=== PATIENT | female | born 1960 | race Caucasian/White ===

== ENCOUNTER → 2017-04-23 | Outpatient (CLI) | payer OTHER, MEDICAID | LOC: FIMAGING 10:28 | PROVIDERS: ATTEND Physician Assistant | DX: Z12.31 Encounter for screening mammogram for malignant neoplasm of breast (principal) | CPT/HCPCS: G0202 ==

== ENCOUNTER → 2017-08-17 | Outpatient (CLI) | payer OTHER, MEDICAID | LOC: FIMAGING 13:26 | PROVIDERS: ATTEND Physician Assistant | DX: Z13.820 Encounter for screening for osteoporosis (principal); Z78.0 Asymptomatic menopausal state ==

== ENCOUNTER → 2017-09-24 | Outpatient (CLI) | payer OTHER, MEDICAID ==
[~2017-09-24] MED LIST: GADOBUTROL 10 ML VIAL IVP ONE
== END ==
LOC: FIMAGING 15:16
PROVIDERS: ATTEND Internal Medicine Hematology & Oncology
DX: C53.9 Malignant neoplasm of cervix uteri, unspecified (principal)
CPT/HCPCS: 72197; A9585

== ENCOUNTER 2017-10-06 09:05 | Day surgery (SDC) | payer OTHER, MEDICAID ==
[2017-10-06] MEDS ORDERED: ceFAZolin 2 GM/SWFI 2 GM/20 ML SYR IVP ONE (09:37)
[2017-10-06] MEDS ORDERED: LR 1,000 ML IV ONE (09:45)
[2017-10-06 09:56] VITALS: TEMP 97.7
[2017-10-06] MEDS ORDERED: BUPIVACAINE 0.5% 30 ML SDV ONE (10:53)
[2017-10-06] MEDS ORDERED: LIDOCAINE 1% 300 MG/30 ML SDV ONE (10:53)
[2017-10-06] MEDS ORDERED: SODIUM BICARBONATE 10 MEQ/10 ML SYR IVP ONE (10:53)
[2017-10-06] MEDS ORDERED: BACITRACIN ZINC 14.2 GM OINTTUBE TP ONE (10:53)
--- NOTE | 2017-10-06 11:00 | PDANEPAE ---
ANE History of Present Illness 57 year old female presents for vascular access placement. ANE Past Medical History - Cardiovascular History Hx Hypertension: Yes Hx Arrhythmias: No Hx Chest Pain: No Hx Coronary Artery / Peripheral Vascular Disease: No Hx CHF / Valvular Disease: No Hx Palpitations: No Cardiovascular History Comment: HYPERLIPIDEMIA - Pulmonary History Hx COPD: No Hx Asthma/Reactive Airway Disease: No Hx Recent Upper Respiratory Infection: No Hx Oxygen in Use at Home: No Hx Sleep Apnea: No Sleep Apnea Screening Result - Last Documented: Negative - Neurologic History Hx Cerebrovascular Accident: No Hx Seizures: No Hx Dementia: No - Endocrine History Hx Diabetes: Yes Hypothyroid: No Hyperthyroid: No Obesity: yes, moderate, severe Endocrine History Comment: NIDDM - Renal History Hx Renal Disorders: No - Liver History Hx Hepatic Disorders: No - Neurological & Psychiatric Hx Hx Neurological and Psychiatric Disorders: Yes Neurological / Psychiatric History Comment: SCHIZOPHRENIA - Cancer History Hx Cancer: Yes Cancer History Comment: CERVICAL - Congenital Disorder History Hx Congenital Disorders: No - GI History Hx Gastrointestinal Disorders: Yes Gastrointestinal History Comment: HEMMORRHOIDS - Other Health History Other Health History: NEG - Surgical History Prior Surgeries: HYSTERECTOMY. LASER ABLATION UTERUS ANE Review of Systems Review of systems is: negative Review of Systems: - Exercise capacity Exercise capacity: >=4 METS METS (RN): 4 METS ANE Patient History - Allergies Allergies/Adverse Reactions: ALKALINE SOAP Allergy (Uncoded 08/20/16 10:57) SNEEZING - Home Medications Home medications: home medication list seen and reviewed Home Medications: Actos HS 08/20/16 [Last Taken Unknown] Atorvastatin Calcium HS 08/20/16 [Last Taken Unknown] Fenofibrate HS 08/20/16 [Last Taken Unknown] Gabapentin BID 08/20/16 [Last Taken Unknown] HCTZ (*) HS 08/20/16 [Last Taken Unknown] Invega Sustenna (*) ONCE 08/20/16 [Last Taken Unknown] Levemir BID 08/20/16 [Last Taken Unknown] Lisinopril DAILY06 08/20/16 [Last Taken Unknown] Metformin HCl TID 08/20/16 [Last Taken Unknown] - NPO status NPO Status: no food or drink >8 hours NPO Since - Liquids (Date): 10/06/17 NPO Since - Liquids (Time): 08:30 NPO Since - Solids (Date): 10/05/17 NPO Since - Solids (Time): 21:00 - Anes Hx Anes Hx: no prior problems - Smoking Hx Smoking Status: Former smoker Marijuana use: No - Alcohol Use Alcohol Use: None - Family Anes Hx Family Anes Hx: neg - N/A Family Hx Anesthesia Complications: NEG ANE Labs/Vital Signs - Vital Signs Vital Signs: reviewed preoperatively; see RN documention for details Blood Pressure: 138/66 Heart Rate: 71 Respiratory Rate: 20 O2 Sat (%): 90 Height: 160.02 cm Weight: 115.666 kg ANE Physical Exam - Airway Neck exam: FROM, increased neck circumference, short neck Mallampati Score: Class 3 Mouth exam: small mouth opening - Pulmonary Pulmonary: no respiratory distress - Cardiovascular Cardiovascular: regular rate and rhythym - ASA Status ASA Status: III ANE Anesthesia Plan Anesthesia Plan: GA w LMA, MAC (Mac is plan, GA with LMA is back-up plan) Total IV Anesthesia: No
[2017-10-06] MEDS ORDERED: fentaNYL 100 MCG/2 ML INJ ONE (11:40)
[2017-10-06] MEDS ORDERED: PROPOFOL/EMULSION 500 MG/50 ML BOTTLE IV ONE (11:40)
--- NOTE | 2017-10-06 11:50 | PDHPUP ---
History & Physical Update H&P update statement: This history and physical update is based on an assessment of the patient which was completed after admission or registration (within 24 hours), but prior to the surgery/procedure. H&P update: H&P reviewed & patient examined, no change in patient's condition since H&P completed
[2017-10-06] MEDS ORDERED: ONDANSETRON 4 MG/2 ML VIAL IVP PRN (12:01)
[2017-10-06] MEDS ORDERED: fentaNYL 100 MCG/2 ML INJ IVP PRN (12:01)
[2017-10-06] MEDS ORDERED: NALOXONE HCL 0.4 MG/ML INJ IVP PRN (12:01)
[2017-10-06] MEDS ORDERED: LR 500 ML IV PRN (12:01)
[2017-10-06] MEDS ORDERED: DEXAMETHASONE 4 MG/ML VIAL ONE (12:06)
--- NOTE | 2017-10-06 13:23 | POSTOPPROG ---
Post Op Note Date of Operation: 10/06/17 Surgeon: Anton Cannon Cocoa Bean Roaster: none Anesthesiologist: Ramu Hathaway Anesthesia: Other (Specify) (MAC) Pre-op Diagnosis: squamous cell CA cervix Post-op Diagnosis: same Procedure: power port placement with flouro Findings: good position and flow Inf/Abcess present in the surg proc area at time of surgery?: No EBL: Minimal Complications: none
[2017-10-06 13:52] VITALS: BP 160/81; O2SAT 95
[2017-10-06 14:06] VITALS: PULSE 65; RESP 14
--- NOTE | 2017-10-06 19:56 | POSTANESTH ---
Post Anesthetic Evaluation Cardiovascular Status: Normal, Stable, Similar to Pre-Op Cond Respiratory Status: Normal, Stable, Similar to Pre-op Cond. Level of Consciousness/Mental Status: Can Participate in Eval, Alert and Oriented Pain Control: Adequate, Prn Tx Ordered Nausea/Vomiting Control: Adequate, Prn Tx Ordered Complications Possibly Related to Anesthesia: None Noted
--- NOTE | 2017-10-10 14:31 | GOP ---
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 ANESTHESIOLOGIST: Valdez Valenzuela MD PREOPERATIVE DIAGNOSIS: Cervical cancer. POSTOPERATIVE DIAGNOSIS: Cervical cancer. PROCEDURE PERFORMED: Left subclavian port placement with fluoroscopic guidance. FINDINGS: The patient was found to have a good position and good flow. DESCRIPTION OF PROCEDURE: The patient was taken to operating room where she received satisfactory IV sedation and monitored anesthesia care by Dr. Valenzuela. She was prepped and draped in the usual sterile fashion. Using 0.5% Marcaine for local infiltration, a single stick was made in the left subclavian vein. A guidewire was introduced. A dilator was passed through the guidewire. The position was confirmed with fluoroscopy. A subcu pocket was made in the 2nd intercostal space. Port tubing was passed from that pocket to the subclavian insertion site. It was trimmed to the appropriate length using fluoroscopic guidance. Good backflow was obtained. The catheter was flushed with heparin saline. The port was secured to the fascia with 3-0 Vicryl. The pocket was closed with 3-0 Vicryl in the subcu and a 4-0 Prolene subcuticular stitch for the skin. The entrance site was closed with a Prolene mattress suture as well. All wounds were infiltrated with 0.5% Marcaine. She tolerated the procedure well and was taken to the recovery room in good condition. /[id number]/MODL MTDD
== END 2017-10-06 14:06 | disposition home or self-care (01) ==
LOC: FSGY 09:05
PROVIDERS: ATTEND Surgery
PROC: 02HV33Z Insertion of Infusion Device into Superior Vena Cava, Percutaneous Approach (ICD-10-PCS; principal; 2017-10-06 10:45)
PROC: 0JH60XZ Insertion of Tunneled Vascular Access Device into Chest Subcutaneous Tissue and Fascia, Open Approach (ICD-10-PCS; principal; 2017-10-06 10:45)
DX: C53.9 Malignant neoplasm of cervix uteri, unspecified (principal); E11.9 Type 2 diabetes mellitus without complications; E78.5 Hyperlipidemia, unspecified; G62.9 Polyneuropathy, unspecified; N28.9 Disorder of kidney and ureter, unspecified; E66.9 Obesity, unspecified; Z68.41 Body mass index [BMI] 40.0-44.9, adult
CPT/HCPCS: C1788; J0690; J1100; J1642; J2704; J3010

== ENCOUNTER → 2017-11-03 | Outpatient (CLI) | payer OTHER, MEDICAID ==
[~2017-11-03] MED LIST changes: +ACETAMINOPHEN 325 MG TAB PO ONE; +FUROSEMIDE 20 MG/2 ML VIAL IV ONE; -GADOBUTROL 10 ML VIAL IVP ONE; +diphenhydrAMINE 25 MG CAP PO ONE
[2017-11-03 19:10] VITALS: RESP 20; O2SAT 95
[2017-11-03 20:09] VITALS: BP 145/61; PULSE 82; TEMP 98.4
== END ==
LOC: FOBOP 15:13
PROVIDERS: ATTEND Internal Medicine Hematology & Oncology
DX: C53.9 Malignant neoplasm of cervix uteri, unspecified (principal); E61.2 Magnesium deficiency; D64.9 Anemia, unspecified
CPT/HCPCS: 36430; J1642; J1940; P9016; P9035

== ENCOUNTER 2017-12-18 10:59 | Outpatient (CLI) | payer OTHER, MEDICAID ==
[2017-12-18] MEDS ORDERED: ACETAMINOPHEN 325 MG TAB PO ONE (12:00)
[2017-12-18 15:20] VITALS: TEMP 99.6
[2017-12-18 15:22] VITALS: BP 183/74
[2017-12-18 15:46] VITALS: PULSE 73; RESP 24; O2SAT 97
== END 2017-12-18 15:40 | disposition home or self-care (01) ==
LOC: FOBOP 10:59
PROVIDERS: ATTEND Internal Medicine Hematology & Oncology
PROC: 30233N1 Transfusion of Nonautologous Red Blood Cells into Peripheral Vein, Percutaneous Approach (ICD-10-PCS; principal; 2017-12-18)
DX: C53.9 Malignant neoplasm of cervix uteri, unspecified (principal)
CPT/HCPCS: 36430; J1642; P9016

== ENCOUNTER 2017-12-24 12:39 | Inpatient (IN) | payer OTHER, MEDICAID ==
--- NOTE | 2017-12-24 14:05 | EDPHY ---
H & P Time Seen by Provider: 12/24/17 13:31 HPI/ROS: CHIEF COMPLAINT: Fall, weakness, shortness of breath. HISTORY OF PRESENT ILLNESS: This patient is a 57 year old female with history of cervical cancer presenting following a fall due to weakness. She stood up, felt dizzy and then fell. Did not hurt herself. She began feeling weak two days ago. Associated with shortness of breath on exertion and feeling dizzy while walking with her walker. She completed chemotherapy treatment 11/29/17 and is scheduled for followup CTs and evaluation at [facility]. She had a blood transfusion last 12/18/17 due to severe anemia. No vomiting, diarrhea, melena, or hematochezia. No chest pain, headache, fever, or other associated symptoms. REVIEW OF SYSTEMS: A 10 point review of systems was performed and is negative with the exception of the elements mentioned in the history of present illness. Past Medical/Surgical History: History of cervical cancer Diabetes mellitus Schizophrenia Neuropathies Social History: Former smoker. Single. Lives in [place]. Smoking Status: Former smoker Physical Exam: General Appearance: Pale, alert, obese. BP 88/60 at triage. Eyes: Pupils equal and round, conjunctival pallor ENT, Mouth: Mucous membranes moist Neck: Normal inspection Respiratory: Lungs are clear to auscultation Cardiovascular: Regular rate and rhythm Gastrointestinal: Abdomen is soft and non-tender Neurological: A&O, nonfocal exam Skin: Warm and dry Extremities: Nontender, no pedal edema Psychiatric: Flat affect Constitutional: Initial Vital Signs Temperature (C) 36.3 C 12/24/17 12:39 Heart Rate 90 12/24/17 12:39 Respiratory Rate 16 12/24/17 12:39 Blood Pressure 88/60 L 12/24/17 12:39 O2 Sat (%) 97 12/24/17 12:39 O2 Delivery Mode Room Air Allergies/Adverse Reactions: ALKALINE SOAP Allergy (Uncoded 10/06/17 11:44) SNEEZING Home Medications: Medication Instructions Recorded Atorvastatin Calcium [Lipitor 40 40 mg PO HS 08/20/16 mg (*)] Fenofibrate 54 mg PO HS 08/20/16 Gabapentin [Neurontin 400 MG (*)] 400 mg PO BID 08/20/16 Hydrochlorothiazide [HCTZ (*)] 12.5 mg PO HS 08/20/16 Insulin Detemir [Levemir Flextouch] 50 unit SQ DAILY 08/20/16 Lisinopril [Zestril 20 mg (*)] 20 mg PO DAILY 08/20/16 Paliperidone Palmitate [Invega 410 mg IM Q90D 08/20/16 Trinza] metFORMIN SR [Glucophage XR 500 mg 500 mg PO DAILY@0800 08/20/16 (*)] Insulin Detemir [Levemir Flextouch] 60 unit SQ HS 12/24/17 Nystatin [Mycostatin Cream (RX)] 1 kiki TP BID PRN 12/24/17 Pioglitazone HCl [Actos 15mg (*)] 3.75 mg PO HS 12/24/17 metFORMIN SR [Glucophage XR 500 mg 1,500 mg PO DAILY@1800 12/24/17 (*)] Medical Decision Making - Diagnostics EKG Interpretation: EKG interpreted by me reveals normal sinus rhythm, rate 89, no ST or T segment changes. Imaging Results: Chest X-Ray 12/24/17 13:30 Impression: Stable and negative. Imaging: I viewed and interpreted images myself ED Course/Re-evaluation: 57 y/o female with history of cervical cancer presents with weakness and shortness of breath on exertion. She is pale on exam. Likely severe anemia. Plan for CBC, chemistries, Troponin, d-dimer, type and screen. Administered 1L IV NS. Prior laboratory studies reviewed. Hematocrit was 22 prior to the patient 's transfusion 12/18/17. Chest x-ray unremarkable. 14:35 Laboratory results reviewed. Hct 21. Creatinine 2.1, elevated from 1.3 in November, consistent with acute renal failure and severe anemia. IV fluids infusing. 1 U packed red blood cells ordered. 14:45 Consulted with hospitalist service. Dr. Mattson accepts admission for severe anemia, acute renal failure, cervical cancer. Differential Diagnosis: Differential diagnosis includes though not limited to dehydration, hypoglycemia , hyponatremia, infectious etiology, pulmonary embolism, acute coronary syndrome - Data Points Laboratory Results: Laboratory Results 12/25/17 05:00 12/25/17 05:00 12/25/17 12/24/17 07:26 15:33 POC Glucose 121 mg/dL H mg/dL (70-100) Patient ABO/Rh A POSITIVE Antibody Screen NEGATIVE Crossmatch IS Only See Detail Medications Given: Atorvastatin Calcium (Lipitor) 40 mg PO HS [facility] Stop: 06/22/18 20:59 Last Admin: 12/24/17 21:15 Dose: 40 mg Gabapentin (Neurontin) 400 mg PO BID [facility] Stop: 06/22/18 20:59 Last Admin: 12/25/17 09:39 Dose: 400 mg Sodium Chloride (Ns) 1,000 mls @ 50 mls/hr IV CONT [facility] Stop: 06/22/18 15:44 Last Admin: 12/24/17 22:23 Dose: 1,000 mls Insulin Glargine (Lantus Syringe) 50 units SC DAILY [facility] Stop: 06/23/18 09:44 Last Admin: 12/25/17 10:42 Dose: 50 units Insulin Human Lispro (Humalog Lispro) 0 unit SC TIDMEAL [facility] PRN Reason: Protocol Stop: 06/22/18 17:59 Last Admin: 12/25/17 17:49 Dose: Not Given Discontinued Medications Sodium Chloride (Ns) 1,000 mls @ 0 mls/hr IV ONCE ONE; Wide Open PRN Reason: Protocol Stop: 12/24/17 14:10 Last Admin: 12/24/17 14:21 Dose: 1,000 mls Miscellaneous Medication (Fenofibrate [Fenofibrate]) 54 mg PO HS [facility] Stop: 06/22/18 20:59 Last Admin: 12/24/17 21:16 Dose: Not Given Miscellaneous Medication (Insulin Detemir [Levemir Flextouch]) 50 unit SQ DAILY [facility] Stop: 06/23/18 08:59 Last Admin: 12/25/17 11:33 Dose: Not Given Miscellaneous Medication (Insulin Detemir [Levemir Flextouch]) 60 unit SQ HS [facility] Stop: 06/22/18 20:59 Last Admin: 12/24/17 21:17 Dose: Not Given Point of Care Test Results: 12/25/17 07:26 POC Glucose 121 H Departure - [facility] Clinical Impression: Anemia Qualifiers: Anemia type: other cause Other causes of anemia: chronic disease, neoplastic Qualified Code(s): D63.0 - Anemia in neoplastic disease Renal failure Qualifiers: Renal failure chronicity: acute Acute renal failure type: unspecified Qualified Code(s): N17.9 - Acute kidney failure, unspecified Cervical cancer Qualifiers: Malignant neoplasm of cervix location: unspecified location Qualified Code(s): C53.9 - Malignant neoplasm of cervix uteri, unspecified Condition: Fair Report Scribed for: Carissa Siegel Report Scribed by: Jessica Kellogg Date of Report: 12/24/17 Time of Report: 14:05 Physician Review and Approval Statement: 12/24/17 14:05 Portions of this note were transcribed by a medical management specialist. I personally performed a history, physical exam, medical decision making, and confirmed accuracy of information the transcribed note.
[2017-12-24] MEDS ORDERED: NS 1,000 ML IV ONE (14:09)
--- NOTE | 2017-12-24 14:29 | CPEKG ---
Heart Rate: 89 RR Interval: 674 P-R Interval: 136 QRSD Interval: 76 QT Interval: 376 QTC Interval: 458 P [place]: 44 QRS [place]: 19 T Wave [place]: 15 EKG Severity - NORMAL ECG - EKG Impression: SINUS RHYTHM Electronically Signed By: Ciro Maciel 24-Dec-2017 14:55:20
[2017-12-24 14:30] LABS: PLATELET COUNT 76 10^3/uL (150-400)
[2017-12-24] MEDS ORDERED: ONDANSETRON DISINTEGRATING 4 MG TAB PO PRN (15:21)
[2017-12-24] MEDS ORDERED: ACETAMINOPHEN 325 MG TAB PO PRN (15:21)
[2017-12-24] MEDS ORDERED: ONDANSETRON 4 MG/2 ML VIAL IVP PRN (15:21)
[2017-12-24] MEDS ORDERED: NYSTATIN 15 GM CR TUBE TP PRN (15:24)
[2017-12-24] MEDS ORDERED: D50W 25 GM/50 ML SYR IVP PRN (15:24)
--- NOTE | 2017-12-24 15:51 | GHP ---
[f rep st] HISTORY AND PHYSICAL DATE OF ADMISSION: 12/24/2017 CHIEF COMPLAINT: Weakness and falls. HISTORY OF PRESENT ILLNESS: This is a 57-year-old female with cervical cancer who had her last chemo therapy on November 29, presents with global weakness. History is somewhat difficult to obtain from er. I did call her sister at her request, however reached a voice message and left her a message wit h the main hospital number and my name. She tells me that she has been weak for the past few days. She fell not because she lost conscious, which she did not, but because she was just so weak. She has maybe had some dysuria. She was treate d for bronchitis recently. She is off antibiotics and is not coughing very much. She has a little b it of pain in her abdomen. She notes no diarrhea. No new rash. She has a device which she inserts into her vagina as part of her treatment, she bleeds slightly during this, however it is self-limited . No other hematemesis, melena, hematochezia, or hematuria. She has no chest pain. She received a transfusion 6 days ago. She tells me for low oxygen. She has been eating and drinking well. Urinat ion has been normal. PAST MEDICAL/SURGICAL HISTORY: 1. Cervical cancer diagnosed in July treated with internal radiation and chemotherapy. Last ch emo was on November 29. She is not aware of what chemo she is receiving. 2. Diabetes mellitus on insulin. 3. Hypertension. 4. Hyperlipidemia. 5. Schizophrenia. MEDICATIONS: Please see medication reconciliation. ALLERGIES: Alkaline soap. SOCIAL HISTORY: She does not drink or smoke. She lives alone. She has a sister who lives in [facility] who is involved in her life. FAMILY HISTORY: Reviewed and noncontributory. REVIEW OF SYSTEMS: A 10-point review of systems is conducted and is negative except per HPI. PHYSICAL EXAMINATION: VITAL SIGNS: Blood pressure is 100/65, heart rate 93, respiration rate 16, sa turating 95% on room air. Temperature is 36.3. GENERAL: The patient is a quite somnolent female wh o appears tired and weak. Otherwise in no acute distress. HEENT: Shows her to be normocephalic, at raumatic. She is pale. CARDIOVASCULAR: Exam shows a regular rate and rhythm. No murmurs, rubs, or gallops. PULMONARY: Lungs clear to auscultation bilaterally. ABDOMEN: Soft, nontender, nondisten ded. SKIN: Shows no rash. GENITOURINARY: Exam shows no Campos. NEUROLOGIC: Exam shows her to be alert and oriented x3. She has global weakness. PSYCHIATRIC: Exam shows normal mood and affect. C HEST: Port is in place. There is no surrounding erythema, fluctuance, or tenderness to palpation ar ound here. It is accessed. LABS: White count is 1.8 with 71% neutrophils, hemoglobin 7.3, platelets are 76. D-dimer 0.48, BUN is 42, creatinine is 2.1. Troponin 0.032. BNP is 282. DATA: 1. I discussed this with Dr. Siegel. Will admit to med/surg. 2. I personally viewed and interpreted her EKG. This shows sinus rhythm. There is nothing acutely ischemic here. 3. I personally viewed and interpreted her chest x-ray. This shows a left-sided port in place. Her heart size is normal. There are no focal infiltrates. IMPRESSION AND PLAN: 1. Weakness: May be related to symptomatic anemia. Given her somnolence, I am also concerned about other possibilities including infection, cardiac, pulmonary. I note that her EKG is normal. Tropon in is borderline, D-dimer is negative. Perform basic infectious workup including urinalysis and bloo d cultures. Agree with transfusion as has been ordered by the emergency department. I think it is r easonable to gauge her symptomatic response to 2 units of packed red blood cells and hold further wor kup until then. 2. Acute kidney injury: Last creatinine was 1.3. It is 2.1. Certainly may contribute to her weakn ess. Likely pre renal though she has been receiving potentially nephrotoxic chemotherapy, she is on lisinopril, hydrochlorothiazide, metformin. Will hold nephrotoxins, volume resuscitate her with 2 un its of packed red blood cells as well as slow normal saline overnight and recheck her creatinine in t he morning. Urine electrolytes have been ordered. 3. Anemia: As above. No source of blood loss. May be marrow suppression due to chemo. 4. Pancytopenia likely due to chemotherapy. 5. Diabetes mellitus: We will continue her home insulin, hold oral medicines, check her glucoses. 6. Hypertension: Hold medicines. 7. Schizophrenia: Seems to be well controlled. She is on Invega. 8. Code status is full. 9. Venous thromboembolism risk is moderate however with her anemia will recommend SCDs. 10. If she does not improve symptomatically tomorrow would consider consulting Oncology. /[id number]/MODL
[2017-12-24] MEDS: INSULIN LISPRO 100 UNIT/ML SC SCH (17:58)
[2017-12-24] MEDS ORDERED: INSULIN DETEMIR 60 UNIT SQ SCH (21:00)
[2017-12-24] MEDS ORDERED: FENOFIBRATE 54 MG PO SCH (21:00)
[2017-12-24] MEDS: ATORVASTATIN CALCIUM 40 MG TAB PO SCH (21:15)
[2017-12-24] MEDS: GABAPENTIN 400 MG CAP PO SCH (21:15)
[2017-12-24] MEDS: NS 1,000 ML IV SCH (22:23)
[2017-12-25 05:17] LABS: PLATELET COUNT 65 10^3/uL (150-400)
[2017-12-25] MEDS ORDERED: NON-FORMULARY NEW DRUG (Insulin Detemir [Levemir Flextouch] 50 UNIT) SQ SCH (09:00)
[2017-12-25] MEDS: GABAPENTIN 400 MG CAP PO SCH ×2 (09:39→21:12)
[2017-12-25] MEDS ORDERED: INSULIN GLARGINE 100 UNITS/ML SYRINGE SC SCH (09:45)
[2017-12-25] MEDS: INSULIN LISPRO 100 UNIT/ML SC SCH ×3 (10:26→17:49)
[2017-12-25] MEDS: INSULIN GLARGINE 100 UNITS/ML UNIT SC SCH (10:42)
--- NOTE | 2017-12-25 12:02 | HOSPPROG ---
Hospitalist Progress Note Assessment/Plan: 57-year-old schizophrenic woman with a history of cervical cancer status post radiation and chemotherapy is admitted with weakness. On admission she was noted to be anemic. I did speak with her sister who says her decline has been over the past several weeks to a point where she was using a wheelchair to get around. # weakness. No obvious sign of infection. She has improved a little bit over night with the addition of a unit of blood. * Continue support and await cultures * Will transfuse an additional unit of blood today * Discussed with Oncology. * Will eventually discharged with home physical therapy and nursing care # cervical cancer status post radiation and chemotherapy for complicated by pancytopenia but not neutropenic * Will follow up with Dr. Ramirez this week * Transfuse as above # schizophrenia, continue her usual medication # DVT prophylaxis given patient's thrombocytopenia will hold chemical prophylaxis and use SCDs while in bed Patient will need additional midnight stay given her need for additional transfusion of blood and follow-up of her blood cultures with her multiple comorbidities and pancytopenia Subjective: Patient new to nm chart reviewed. Has flat affect but alert and oriented x4 no new complaints except for a "weakness in her abdomen Objective: Vital Signs Temp Pulse Resp BP Pulse Ox 36.8 C 86 18 123/108 H 94 12/25/17 11:06 12/25/17 11:06 12/25/17 11:06 12/25/17 11:06 12/25/17 11:06 Laboratory Results 12/25/17 05:00 12/25/17 05:00 12/24/17 12/25/17 12/26/17 05:59 05:59 05:59 Intake Total 1300 Output Total 200 650 Balance 1100 -650 - Physical Exam Constitutional: no apparent distress, chronically ill appearing, obese Eyes: PERRL, anicteric sclera, EOMI Ears, Nose, Mouth, Throat: hearing normal Cardiovascular: regular rate and rhythym Respiratory: no respiratory distress, clear to auscultation Gastrointestinal: normoactive bowel sounds Genitourinary: no bladder fullness Skin: warm Musculoskeletal: normal joint ROM, no joint effusions Neurologic: AAOx3 Psychiatric: interacting appropriately ICD10 Worksheet Patient Problems: Problems Problem Status Onset Anemia Acute Renal failure Acute Cervical cancer Acute
--- NOTE | 2017-12-25 12:26 | PDMN ---
Medical Necessity Medical necessity: C/M review: est. > 2 MN LOS for eval and TX of acute and persistent generalized weakness of unclear etiology, anemia, pancytopenia, requiring follow up of blood cultures done 9results still pending), 1unit PRBCs 12/24/2017, planned 1 unit PRBCs 12/25/2017, ongoing IV fluids, pulse oximetry, acute inpt PT/OT, comorbid patient decline over past several weeks to a point where patient was using a wheelchair for mobility, cervical cancer S/P radiation and chemotherapy, schizophrenia per 12/25/2017 Hospitalist progress note.
--- NOTE | 2017-12-25 18:12 | ASMTCMCOM ---
CM Note CM Note Notes: Pt admitted for severe anemia secondary to cervical cancer and recent chemo. Pt has an extensive history including DM, HTN, hyperlipidemia, schizophrenia. Pt lives alone. Her sister, who lives in [place], is involved in her care. Pt converted from obs to inpt today, no CEVALLOS indicated. Discharge needs remain unclear at this time. CM will cont to follow. Current Discharge Plan: To be determined Date Signed: 12/25/2017 06:11 PM Electronically Signed By:Liza Raymond RN
[2017-12-25] MEDS ORDERED: INSULIN GLARGINE 100 UNITS/ML UNIT SC SCH (21:00)
[2017-12-25] MEDS ORDERED: FENOFIBRATE 48 MG TAB PO SCH (21:00)
[2017-12-25] MEDS: ATORVASTATIN CALCIUM 40 MG TAB PO SCH (21:12)
[2017-12-25] MEDS: NS 1,000 ML IV SCH (21:17)
[2017-12-26] MEDS: NYSTATIN POWDER 15 GM BTL TP SCH ×2 (02:27→09:51)
[2017-12-26 05:03] LABS: PLATELET COUNT 61 10^3/uL (150-400)
[2017-12-26 07:27] VITALS: RESP 16; O2SAT 94
[2017-12-26] MEDS: INSULIN LISPRO 100 UNIT/ML SC SCH (07:33)
[2017-12-26] MEDS ORDERED: POTASSIUM CL 20 MEQ TAB PO ONE (08:19)
[2017-12-26] MEDS: GABAPENTIN 400 MG CAP PO SCH (09:50)
[2017-12-26] MEDS: INSULIN GLARGINE 100 UNITS/ML UNIT SC SCH (09:50)
--- NOTE | 2017-12-26 10:24 | PDIAF ---
- Diagnosis Diagnosis: Weakness, symptomatic anemia, diabetes, hypertension Code Status: Full Code - Medication Management Discharge Medications: Medications to Continue on Transfer Atorvastatin Calcium [Lipitor 40 mg (*)] 40 mg PO HS 08/20/16 [Last Taken ] Fenofibrate 54 mg PO HS 08/20/16 [Last Taken 12/23/17] Gabapentin [Neurontin 400 MG (*)] 400 mg PO BID 08/20/16 [Last Taken 12/24/17 09 :00] Hydrochlorothiazide [HCTZ (*)] 12.5 mg PO HS 08/20/16 [Last Taken 12/23/17] Insulin Detemir [Levemir Flextouch] 50 unit SQ DAILY 08/20/16 [Last Taken ] Lisinopril [Zestril 20 mg (*)] 20 mg PO DAILY 08/20/16 [Last Taken 12/24/17] Paliperidone Palmitate [Invega Trinza] 410 mg IM Q90D 08/20/16 [Last Taken 11/30] metFORMIN SR [Glucophage XR 500 mg (*)] 500 mg PO DAILY@0800 08/20/16 [Last Taken 12/24/17] Insulin Detemir [Levemir Flextouch] 60 unit SQ HS 12/24/17 [Last Taken 12/23/17] Nystatin [Mycostatin Cream (RX)] 1 kiki TP BID PRN 12/24/17 [Last Taken Unknown] metFORMIN SR [Glucophage XR 500 mg (*)] 1,500 mg PO DAILY@1800 12/24/17 [Last Taken 12/23/17] Discharge Medications: Refer to the Discharge Home Medication list for PRN reason. - Orders Services needed: Home Care, Registered Nurse, Physical Therapy Home Care Face to Face: I certify that this patient was under my care and that I had the required [id number] encounter meeting the encounter requirements on the discharge day. My findings support the fact that the patient is homebound as defined in Home Care Face to Face Continued: CMS Chapter 7 Medicare Benefits Manual 30.1.1 , The condition of the patient is such that there exists a normal inability to leave home and consequently, leaving home would require a considerable and taxing effort. Diet Recommendation: no restrictions on diet, ADA 2000 consistent carb Diet Texture: Regular Texture Diet Additional: Patient with diabetes, Actos on hold due to well controlled sugars in the hospital, please follow-up on blood sugars as well as blood pressure. - Follow Up Care Current Providers and Referrals: Patient,NotPresent [Unknown] - As per Instructions
--- NOTE | 2017-12-26 10:47 | GDS ---
[f rep st] DISCHARGE SUMMARY DIAGNOSES: 1. Weakness, failure to thrive, post chemotherapy. 2. Pancytopenia. 3. Symptomatic anemia, status post transfusion of 2 units of packed red blood cells. 4. History of cervical cancer, status post chemotherapy and radiation. 5. Schizophrenia. 6. Type 1 diabetes. 7. Hypertension. HOSPITAL COURSE: The patient is a 57-year-old schizophrenic, who has a history of cervical cancer. She is status post chemotherapy and radiation. Recently undergoing her last chemotherapy a few weeks ago. Per her sister's report, she has been getting increasingly weak over that period of time, to t he point where she was ambulating with the help of a wheelchair. She was at her [facility] appointment when she fell and was brought into the ER and admitted for further evaluation and denise tment. She was found to be anemic with a hemoglobin in the 7 range, and pancytopenia, but no obvious infection was found. She was admitted, transfused with 2 units of packed red blood cells, and worke d with physical therapy. Over the course of her hospitalization, she did improve to a point where sh lona was ambulating without a wheelchair, and felt safe for discharge, but the recommendations are for o ngoing home care with physical therapy. Her diabetes was well controlled, although, her sugars were relatively low, I discontinued the Actos at discharge, and will hold the metformin to resume slowly a t home. She needs to watch her blood sugars, and her blood pressure, and have this followed up as an outpatient. CONDITION ON DISCHARGE: Fair. Vital signs are stable. She is 94% on room air. Heart rate 73, bloo d pressure 157/93. She has been afebrile throughout her stay. DISCHARGE MEDICATIONS: Please see discharge medication form. Notable changes include holding off th e Actos unless her blood sugars increase. They have been running in the low 100s throughout her stay , off the medications. FOLLOWUP INSTRUCTIONS: She needs to follow up with Dr. Bernstein, as an outpatient within 1-2 weeks to re check her sugars, as well as her blood pressure. She should also follow up with Dr. Leighton Ramirez or his professional nursing assistant within the week. Total time spent with patient on day of discharge and coordination of care is 35 minutes. /[id number]/MODL
[2017-12-26 11:54] VITALS: BP 166/85; PULSE 72; TEMP 97.6
== END 2017-12-26 12:40 | disposition home or self-care (01) | DRG 812 ==
LOC: EDUNIT# → F3E 15:47 → OBSVTOIN 12-25 12:06
PROVIDERS: ADMIT Student in an Organized Health Care Education/Training Program; ATTEND Student in an Organized Health Care Education/Training Program
PROC: 30233N1 Transfusion of Nonautologous Red Blood Cells into Peripheral Vein, Percutaneous Approach (ICD-10-PCS; principal; 2017-12-25)
DX: D64.81 Anemia due to antineoplastic chemotherapy (principal); D61.810 Antineoplastic chemotherapy induced pancytopenia; C53.9 Malignant neoplasm of cervix uteri, unspecified; E11.9 Type 2 diabetes mellitus without complications; E78.5 Hyperlipidemia, unspecified; I10 Essential (primary) hypertension; F20.9 Schizophrenia, unspecified; Z79.4 Long term (current) use of insulin
CPT/HCPCS: 97116-GP; 97161-GP; 97165-GO; G0378; G8978-GP-CJ; G8979-GP-CH; G8987-GO-CI; G8988-GO-CI; G8989-GO-CI; J1642; J1815; P9016

== ENCOUNTER → 2018-02-15 | Outpatient (CLI) | payer OTHER, MEDICAID | LOC: FCPNEURO 20:30 | PROVIDERS: ATTEND Student in an Organized Health Care Education/Training Program | DX: G47.33 Obstructive sleep apnea (adult) (pediatric) (principal) ==

== ENCOUNTER → 2018-04-28 | Outpatient (CLI) | payer OTHER, MEDICAID | LOC: FIMAGING 11:09 | PROVIDERS: ATTEND Physician Assistant | DX: Z12.31 Encounter for screening mammogram for malignant neoplasm of breast (principal) ==

== ENCOUNTER → 2019-05-03 | Outpatient (CLI) | payer OTHER, MEDICAID | LOC: FIMAGING 13:24 ==